=== PATIENT | female | born 1980 | race Caucasian/White ===

== ENCOUNTER 2018-01-15 12:24 | Emergency (ER) | payer OTHER ==
[~2018-01-15] VITALS: Ht 175.2 cm; Wt 113.4 kg
[~2018-01-15 12:24] MED LIST: ACULAR 3 ML3 M1 OP; ANTIBIOTIC; BACTRIM DS 8001 TA1 PO; CIPRO250 MG PO; CLEOCIN150 MG PO; CLINDAMYCIN HC300 MG PO; DOXYCYCLINE100 M2 PO; FLONASE 0.05% 121 EA NAS; HYCODAN,HYDROME10 ML PO; HYDROCODONE BIT1 T11 PO; LEVOFLOXACIN500 MG PO; MEDROL DOSEPAK4 MG PO; MELOXICAM15 MG PO; NAPROSYN500 MG PO; NKHM; PERCOCET 650 MG1 TA1 PO; PRILOSEC20 MG PO; PROAIR HFA0.09 MG/AC INH; ROBITUSSIN AC 10 MG/ PO; TOBRAMYCIN 0.3% OP; TYLENOL W/CODEI1 TA2 PO; VENTOLIN H0.09 MG/AC INH
[2018-01-15 13:00] LABS: BASO % 0.4 % (0.0-1.0); EOS # 0.1 10*3/uL (0.0-0.4); HEMATOCRIT 44.6 % (37.0-47.0); HEMOGLOBIN 14.8 g/dl (12.0-16.0); LYMPH # 1.2 10*3/uL (1.3-4.4); LYMPH % 22.2 % (27.0-41.0); MEAN CORPUSCULAR HGB 30.2 pg (27.0-31.0); MEAN CORPUSCULAR HGB CONC 33.2 g/dl (33.0-37.0); MEAN PLATELET VOLUME 9.8 fl (9.6-12.3); MONO # 0.7 10*3/uL (0.1-1.0); MONO % 14.3 % (3.0-9.0); NEUT # 3.2 10*3/uL (2.3-7.9); NEUT % 61.9 % (47.0-73.0); PLATELET COUNT AUTOMATED 246 10*3/uL (130-400); RED CELL DISTRI WIDTH 13.6 % (0-14.5); WHITE BLOOD COUNT 5.2 10*3/uL (4.8-10.8)
[2018-01-15 13:15] LABS: ALBUMIN 3.4 gm/dl (3.1-4.5); ALKALINE PHOSPHATASE 79 U/L (45-117); BUN 7 mg/dl (7-24); CHLORIDE 104 mmol/L (98-107); CREATININE 0.83 mg/dL (0.55-1.02); POTASSIUM 3.8 mmol/L (3.5-5.1); SGOT/AST 16 IU/L (3-35); SGPT/ALT 21 U/L (12-78); SODIUM 137 mmol/L (136-145); TOTAL PROTEIN 7.4 gm/dL (6.4-8.2)
[2018-01-15] MEDS ORDERED: TAMIFLU 75MG CA75 MG PO ×2 (15:22→15:25)
[2018-01-15] MEDS ORDERED: SEPTDS PO (15:22)
== END 2018-01-15 14:54 | disposition home or self-care (01) ==
LOC: ED 12:24
PROVIDERS: Emergency Medicine
DX: J32.9 Chronic sinusitis, unspecified (principal); J10.1 Influenza due to other identified influenza virus with other respiratory manifestations; Z79.899 Other long term (current) drug therapy; Z88.0 Allergy status to penicillin; Z88.1 Allergy status to other antibiotic agents; Z88.8 Allergy status to other drugs, medicaments and biological substances; Z91.018 Allergy to other foods

== ENCOUNTER 2018-02-23 10:31 | Emergency (ER) | payer OTHER ==
[~2018-02-23] VITALS: Ht 175.2 cm; Wt 113.4 kg
[~2018-02-23 10:31] MED LIST changes: +SEPTDS PO; +TAMIFLU 75MG CA75 MG PO
== END 2018-02-23 11:52 | disposition home or self-care (01) ==
LOC: ED 10:31
DX: S80.01XA Contusion of right knee, initial encounter (principal); Z88.0 Allergy status to penicillin; Z88.1 Allergy status to other antibiotic agents; Z88.6 Allergy status to analgesic agent; Z88.8 Allergy status to other drugs, medicaments and biological substances; Z91.018 Allergy to other foods; W19.XXXA Unspecified fall, initial encounter; Y93.89 Activity, other specified; Y92.69 Other specified industrial and construction area as the place of occurrence of the external cause; Y99.9 Unspecified external cause status

== ENCOUNTER → 2018-03-23 | Outpatient (CLI) | payer OTHER ==
[~2018-03-23] MED LIST changes: +PREDNISONE10 MG PO; +SOMA350 MG PO
[2018-03-23 16:08] LABS: BASO % 0.3 % (0.0-1.0); EOS # 0.3 10*3/uL (0.0-0.4); EOS % 2.6 % (1.0-4.0); HEMOGLOBIN 13.9 g/dl (12.0-16.0); LYMPH # 3.6 10*3/uL (1.3-4.4); LYMPH % 35.9 % (27.0-41.0); MEAN CELL VOLUME 93.7 fl (81.0-99.0); MEAN CORPUSCULAR HGB 30.3 pg (27.0-31.0); MEAN CORPUSCULAR HGB CONC 32.3 g/dl (33.0-37.0); MEAN PLATELET VOLUME 9.4 fl (9.6-12.3); MONO # 0.6 10*3/uL (0.1-1.0); MONO % 6.3 % (3.0-9.0); NEUT # 5.5 10*3/uL (2.3-7.9); NEUT % 54.7 % (47.0-73.0); PLATELET COUNT AUTOMATED 311 10*3/uL (130-400); RED BLOOD COUNT 4.59 10*6/uL (4.10-5.10); RED CELL DISTRI WIDTH 13.4 % (0-14.5)
[2018-03-24 09:05] LABS: HEPATITIS B SURFACE AG Negative (Negative); HEPATITIS C VIRUS ANTIBODY <0.1 s/co (0.0-0.9)
[2018-03-25 18:07] LABS: ALTERNARIA ALTERNATA, IGE <0.10 kU/L (Class 0); AMERICAN ELM, IGE <0.10 kU/L (Class 0); ASPERGILLUS FUMIGATU, IGE <0.10 kU/L (Class 0); BERMUDA GRASS, IGE <0.10 kU/L (Class 0); BIRCH, COMMON SILVER IGE <0.10 kU/L (Class 0); CLADOSPORIUM HERBARU, IGE <0.10 kU/L (Class 0); CORN, IGE <0.10 kU/L (Class 0); D FARINAE MITE <0.10 kU/L (Class 0); D PTERONYSSINUS <0.10 kU/L (Class 0); DOG DANDER, IGE <0.10 kU/L (Class 0); IMMUNOGLOBULIN IgE 002170 122 IU/mL (0-100); MAPLE LEAF SYCAMORE, IGE <0.10 kU/L (Class 0); MAPLE/BOX ELDER, IGE <0.10 kU/L (Class 0); MILK (COW), IGE 0.11 kU/L (Class 0/I); MOUSE URINE IGE <0.10 kU/L (Class 0); PEANUT, IGE <0.10 kU/L (Class 0); PENICILLIUM CHRYSOGENUM, IGE <0.10 kU/L (Class 0); ROUGH PIGWEED, IGE <0.10 kU/L (Class 0); SHEEP SORREL (DOCK), IGE <0.10 kU/L (Class 0); SHORT RAGWEED, IGE <0.10 kU/L (Class 0); SOYBEAN, IGE <0.10 kU/L (Class 0); TIMOTHY, IGE <0.10 kU/L (Class 0); WALNUT TREE, IGE <0.10 kU/L (Class 0); WHEAT, IGE <0.10 kU/L (Class 0); WHITE ASH, IGE <0.10 kU/L (Class 0); WHITE MULBERRY, IGE <0.10 kU/L (Class 0); WHITE OAK, IGE <0.10 kU/L (Class 0)
== END | disposition home or self-care (01) ==
LOC: LAB 15:39
PROVIDERS: Internal Medicine
DX: L50.9 Urticaria, unspecified (principal)

== ENCOUNTER 2018-04-02 18:49 | Emergency (ER) | payer OTHER ==
[~2018-04-02] VITALS: Ht 175.2 cm; Wt 108.9 kg
[~2018-04-02 18:49] MED LIST changes: -PREDNISONE10 MG PO; -SOMA350 MG PO
[2018-04-02] MEDS ORDERED: SOMA350 MG PO (21:50)
[2018-04-02] MEDS ORDERED: PREDNISONE10 MG PO (22:10)
== END 2018-04-02 21:56 | disposition home or self-care (01) ==
LOC: ED 18:49
DX: S16.1XXA Strain of muscle, fascia and tendon at neck level, initial encounter (principal); S39.012A Strain of muscle, fascia and tendon of lower back, initial encounter; S30.1XXA Contusion of abdominal wall, initial encounter; Z88.0 Allergy status to penicillin; Z88.1 Allergy status to other antibiotic agents; Z88.8 Allergy status to other drugs, medicaments and biological substances; V49.88XA Car occupant (driver) (passenger) injured in other specified transport accidents, initial encounter; Y93.89 Activity, other specified; Y92.413 State road as the place of occurrence of the external cause; Y99.9 Unspecified external cause status

== ENCOUNTER → 2018-06-23 | Outpatient (CLI) | payer OTHER ==
[~2018-06-23] MED LIST changes: +PREDNISONE10 MG PO; +SOMA350 MG PO
[2018-06-23 13:00] LABS: BILIRUBIN NEGATIVE (NEGATIVE); BLOOD 2+ (NEGATIVE); CLARITY SL CLOUDY (CLEAR); COLOR YELLOW (YELLOW); GLUCOSE NEGATIVE (NEGATIVE); KETONE NEGATIVE (NEGATIVE); LEUKO ESTERASE NEGATIVE (NEGATIVE); NITRITE NEGATIVE (NEGATIVE); PH 5.5 (5.0-9.0); UROBILINOGEN 0.2 E.U./dl (0.2-1.0)
[2018-06-23 13:01] LABS: BASO % 0.4 % (0.0-1.0); EOS # 0.2 10*3/uL (0.0-0.4); EOS % 1.4 % (1.0-4.0); HEMATOCRIT 43.1 % (37.0-47.0); HEMOGLOBIN 14.4 g/dl (12.0-16.0); LYMPH # 3.4 10*3/uL (1.3-4.4); LYMPH % 31.7 % (27.0-41.0); MEAN CELL VOLUME 90.7 fl (81.0-99.0); MEAN CORPUSCULAR HGB 30.3 pg (27.0-31.0); MEAN CORPUSCULAR HGB CONC 33.4 g/dl (33.0-37.0); MEAN PLATELET VOLUME 9.5 fl (9.6-12.3); MONO # 0.7 10*3/uL (0.1-1.0); MONO % 6.2 % (3.0-9.0); NEUT # 6.4 10*3/uL (2.3-7.9); NEUT % 59.9 % (47.0-73.0); PLATELET COUNT AUTOMATED 338 10*3/uL (130-400); RED BLOOD COUNT 4.75 10*6/uL (4.10-5.10); WHITE BLOOD COUNT 10.6 10*3/uL (4.8-10.8)
[2018-06-23 13:14] LABS: BACTERIA 2+; EPITHELIAL CELLS 15-20; MUCOUS 1+
[2018-06-23 13:28] LABS: ALBUMIN 3.5 gm/dl (3.1-4.5); ALKALINE PHOSPHATASE 94 U/L (45-117); BUN 11 mg/dl (7-24); CHLORIDE 108 mmol/L (98-107); CREATININE 0.74 mg/dL (0.55-1.02); POTASSIUM 3.9 mmol/L (3.5-5.1); SGOT/AST 7 IU/L (3-35); SGPT/ALT 16 U/L (12-78); SODIUM 141 mmol/L (136-145); T3 UPTAKE 35 % (31-39); THYROXINE (T4) TOTAL 10.9 ug/dl (4.8-13.9); TOTAL PROTEIN 7.8 gm/dL (6.4-8.2)
== END | disposition home or self-care (01) ==
LOC: LAB 12:20
PROVIDERS: Urology
DX: N20.0 Calculus of kidney (principal); N39.0 Urinary tract infection, site not specified

== ENCOUNTER → 2019-06-03 | Day surgery (SDC) | payer OTHER | END | disposition home or self-care (01) | LOC: SDC 01:42 | DX: N60.92 Unspecified benign mammary dysplasia of left breast (principal); N63.20 Unspecified lump in the left breast, unspecified quadrant ==

== ENCOUNTER 2019-07-01 21:49 | Emergency (ER) | payer OTHER ==
[~2019-07-01] VITALS: Ht 175.2 cm; Wt 108.9 kg
[2019-07-02] MEDS ORDERED: MEDROL DOSEPAK4 MG PO (00:13)
== END 2019-07-02 00:30 | disposition home or self-care (01) ==
LOC: ED 21:49
DX: S39.012A Strain of muscle, fascia and tendon of lower back, initial encounter (principal); M54.41 Lumbago with sciatica, right side; F17.200 Nicotine dependence, unspecified, uncomplicated; Z88.0 Allergy status to penicillin; Z88.1 Allergy status to other antibiotic agents; Z88.8 Allergy status to other drugs, medicaments and biological substances; Z88.6 Allergy status to analgesic agent; Z91.018 Allergy to other foods; Z87.442 Personal history of urinary calculi; X50.1XXA Overexertion from prolonged static or awkward postures, initial encounter; Y93.89 Activity, other specified; Y92.098 Other place in other non-institutional residence as the place of occurrence of the external cause; Y99.8 Other external cause status

== ENCOUNTER 2019-10-11 13:41 | Emergency (ER) | payer OTHER ==
[~2019-10-11] VITALS: Wt 100.2 kg
[2019-10-11] MEDS ORDERED: IBU600 M1 PO (15:24)
== END 2019-10-11 15:32 | disposition home or self-care (01) ==
LOC: ED 13:41
DX: N64.4 Mastodynia (principal); N63.11 Unspecified lump in the right breast, upper outer quadrant; F17.200 Nicotine dependence, unspecified, uncomplicated; Z88.0 Allergy status to penicillin; Z88.1 Allergy status to other antibiotic agents; Z88.8 Allergy status to other drugs, medicaments and biological substances; Z88.6 Allergy status to analgesic agent; Z91.018 Allergy to other foods

== ENCOUNTER 2019-11-09 16:09 | Emergency (ER) | payer OTHER ==
[~2019-11-09] VITALS: Ht 175.2 cm; Wt 99.8 kg
[~2019-11-09 16:09] MED LIST changes: +IBU600 M1 PO
== END 2019-11-09 18:49 | disposition home or self-care (01) ==
LOC: ED 16:09
DX: S06.0X0A Concussion without loss of consciousness, initial encounter (principal); Z88.1 Allergy status to other antibiotic agents; Z88.8 Allergy status to other drugs, medicaments and biological substances; Z88.0 Allergy status to penicillin; Z91.018 Allergy to other foods; Z79.899 Other long term (current) drug therapy; W22.8XXA Striking against or struck by other objects, initial encounter; Y93.89 Activity, other specified; Y92.098 Other place in other non-institutional residence as the place of occurrence of the external cause; Y99.8 Other external cause status

== ENCOUNTER 2019-12-10 15:30 | Emergency (ER) | payer OTHER ==
[~2019-12-10] VITALS: Ht 175.2 cm; Wt 103.4 kg
[~2019-12-10 15:30] MED LIST changes: -NEXIUM40 MG PO
[2019-12-10 17:23] LABS: BASO % 0.4 % (0.0-1.0); EOS # 0.3 10*3/uL (0.0-0.4); EOS % 3.8 % (1.0-4.0); HEMATOCRIT 44.2 % (37.0-47.0); HEMOGLOBIN 14.5 g/dl (12.0-16.0); MEAN CORPUSCULAR HGB 30.9 pg (27.0-31.0); MEAN CORPUSCULAR HGB CONC 32.8 g/dl (33.0-37.0); MEAN PLATELET VOLUME 9.5 fl (9.6-12.3); MONO # 0.7 10*3/uL (0.1-1.0); NEUT # 4.1 10*3/uL (2.3-7.9); NEUT % 50.6 % (47.0-73.0); PLATELET COUNT AUTOMATED 328 10*3/uL (130-400); RED CELL DISTRI WIDTH 12.9 % (0-14.5); WHITE BLOOD COUNT 8.2 10*3/uL (4.8-10.8)
[2019-12-10 17:37] LABS: ACT PARTIAL THROMBO TIME 28.1 SECONDS (20.0-32.1); ALBUMIN 3.4 gm/dl (3.1-4.5); ALKALINE PHOSPHATASE 87 U/L (45-117); BUN 7 mg/dl (7-24); CHLORIDE 106 mmol/L (98-107); CREATININE 1.03 mg/dL (0.55-1.02); LIPASE 38 U/L (73-393); POTASSIUM 3.4 mmol/L (3.5-5.1); SGOT/AST 9 IU/L (3-35); SGPT/ALT 16 U/L (12-78); SODIUM 139 mmol/L (136-145); TOTAL PROTEIN 7.3 gm/dL (6.4-8.2); TROPONIN I < 0.015 ng/ml (<0.045)
[2019-12-10] MEDS ORDERED: NEXIUM40 MG PO (19:33)
[2019-12-10] MEDS ORDERED: SEPTDS PO (19:53)
== END 2019-12-10 20:09 | disposition home or self-care (01) ==
LOC: ED 15:30
PROVIDERS: Physician Assistant
DX: R10.13 Epigastric pain (principal); L02.413 Cutaneous abscess of right upper limb; R11.0 Nausea; I10 Essential (primary) hypertension; F17.200 Nicotine dependence, unspecified, uncomplicated; Z88.0 Allergy status to penicillin; Z88.1 Allergy status to other antibiotic agents; Z88.8 Allergy status to other drugs, medicaments and biological substances; Z88.6 Allergy status to analgesic agent; Z91.018 Allergy to other foods; Z79.899 Other long term (current) drug therapy

== ENCOUNTER → 2019-12-10 | Outpatient (CLI) | payer OTHER ==
[~2019-12-10] MED LIST changes: +NEXIUM40 MG PO
== END | disposition home or self-care (01) ==
LOC: MRI 14:00
DX: J01.00 Acute maxillary sinusitis, unspecified (principal)

== ENCOUNTER → 2020-03-09 | Outpatient (CLI) | payer OTHER ==
[~2020-03-09] MED LIST changes: +NEXIUM40 MG PO
== END | disposition home or self-care (01) ==
LOC: LAB 10:17
DX: S92.912A Unspecified fracture of left toe(s), initial encounter for closed fracture (principal); M47.817 Spondylosis without myelopathy or radiculopathy, lumbosacral region; M85.88 Other specified disorders of bone density and structure, other site; R60.0 Localized edema; X58.XXXA Exposure to other specified factors, initial encounter; Y93.89 Activity, other specified; Y92.89 Other specified places as the place of occurrence of the external cause; Y99.8 Other external cause status

== ENCOUNTER → 2020-03-20 | Outpatient (CLI) | payer OTHER | END | disposition home or self-care (01) | LOC: MAMMO 12:55 | DX: N63.23 Unspecified lump in the left breast, lower outer quadrant (principal); N60.02 Solitary cyst of left breast ==

== ENCOUNTER 2020-07-31 19:48 | Emergency (ER) | payer OTHER ==
[~2020-07-31] VITALS: Ht 175.2 cm; Wt 103.4 kg
== END 2020-07-31 20:04 | disposition home or self-care (01) ==
LOC: ED 19:48
DX: S89.91XA Unspecified injury of right lower leg, initial encounter (principal); F17.200 Nicotine dependence, unspecified, uncomplicated; Z88.0 Allergy status to penicillin; Z88.1 Allergy status to other antibiotic agents; Z91.018 Allergy to other foods; Z88.8 Allergy status to other drugs, medicaments and biological substances; W22.8XXA Striking against or struck by other objects, initial encounter; Y93.89 Activity, other specified; Y92.89 Other specified places as the place of occurrence of the external cause; Y99.8 Other external cause status

== ENCOUNTER → 2020-11-02 | Outpatient (CLI) | payer OTHER | END | disposition home or self-care (01) | LOC: MAMMO 00:56 | PROVIDERS: ATTEND Internal Medicine Nephrology | DX: N63.25 Unspecified lump in the left breast, overlapping quadrants (principal); N63.23 Unspecified lump in the left breast, lower outer quadrant; N64.89 Other specified disorders of breast ==

== ENCOUNTER 2021-03-28 03:53 | Emergency (ER) | payer OTHER ==
[~2021-03-28] VITALS: Ht 175.2 cm; Wt 94.3 kg
[2021-03-28] MEDS ORDERED: VIBRAMYCIN100 MG PO (04:05)
== END 2021-03-28 04:15 | disposition home or self-care (01) ==
LOC: ED 03:53
DX: H66.92 Otitis media, unspecified, left ear (principal); Z88.0 Allergy status to penicillin; Z88.8 Allergy status to other drugs, medicaments and biological substances; Z79.899 Other long term (current) drug therapy

== ENCOUNTER 2021-05-01 12:22 | Emergency (ER) | payer OTHER ==
[~2021-05-01] VITALS: Ht 175.2 cm; Wt 107.5 kg
[~2021-05-01 12:22] MED LIST changes: +VIBRAMYCIN100 MG PO
== END 2021-05-01 15:33 | disposition home or self-care (01) ==
LOC: ED 12:22
DX: R59.0 Localized enlarged lymph nodes (principal); R51.9 Headache, unspecified; H53.149 Visual discomfort, unspecified; Z88.0 Allergy status to penicillin; Z88.1 Allergy status to other antibiotic agents; Z88.8 Allergy status to other drugs, medicaments and biological substances; Z88.6 Allergy status to analgesic agent; Z91.018 Allergy to other foods; Z79.899 Other long term (current) drug therapy; Z79.2 Long term (current) use of antibiotics

== ENCOUNTER → 2021-05-09 | Outpatient (CLI) | payer OTHER ==
[~2021-05-09] MED LIST changes: +CLARITIN-D 121 EACH PO; +FLONASE ALLERG9.9 ML NAS; +TOPAMAX25 M3 PO
== END | disposition home or self-care (01) ==
LOC: CT 00:09
PROVIDERS: ATTEND Internal Medicine
DX: R59.0 Localized enlarged lymph nodes (principal); J32.0 Chronic maxillary sinusitis

== ENCOUNTER 2021-05-22 14:10 | Inpatient (IN) | payer OTHER ==
[~2021-05-22] VITALS: Ht 175.2 cm; Wt 107.8 kg
[~2021-05-22 14:10] MED LIST changes: -CLARITIN-D 121 EACH PO; -FLONASE ALLERG9.9 ML NAS; -TOPAMAX25 M3 PO
[2021-05-22 14:20] VITALS: BP 155/83
[2021-05-22 15:29] LABS: BASO % 0.2 % (0.0-1.0); EOS # 0.4 10*3/uL (0.0-0.4); EOS % 4.7 % (1.0-4.0); HEMATOCRIT 40.6 % (37.0-47.0); LYMPH # 2.3 10*3/uL (1.3-4.4); LYMPH % 27.9 % (27.0-41.0); MEAN CELL VOLUME 92.7 fl (81.0-99.0); MEAN CORPUSCULAR HGB 29.2 pg (27.0-31.0); MEAN CORPUSCULAR HGB CONC 31.5 g/dl (33.0-37.0); MONO # 0.5 10*3/uL (0.1-1.0); MONO % 6.7 % (3.0-9.0); NEUT # 4.9 10*3/uL (2.3-7.9); NEUT % 60.3 % (47.0-73.0); PLATELET COUNT AUTOMATED 372 10*3/uL (130-400); RED BLOOD COUNT 4.38 10*6/uL (4.10-5.10); RED CELL DISTRI WIDTH 12.8 % (0-14.5); WHITE BLOOD COUNT 8.1 10*3/uL (4.8-10.8)
[2021-05-22 16:08] LABS: ALKALINE PHOSPHATASE 74 U/L (45-117); BUN 6 mg/dl (7-24); CHLORIDE 105 mmol/L (98-107); CREATININE 0.71 mg/dL (0.55-1.02); POTASSIUM 3.7 mmol/L (3.5-5.1); SGOT/AST 8 IU/L (3-35); SODIUM 138 mmol/L (136-145); TOTAL PROTEIN 7.5 gm/dL (6.4-8.2)
[2021-05-22 16:18] LABS: SGPT/ALT 14 U/L (12-78)
[2021-05-22 16:24] LABS: BETA-HCG, QUANT < 1.0 mIU/mL (1-3)
[2021-05-22] MEDS ORDERED: FLONASE ALLERG9.9 ML NAS (18:24)
[2021-05-22] MEDS ORDERED: TOPAMAX25 M3 PO (18:27)
[2021-05-22] MEDS ORDERED: CLARITIN-D 121 EACH PO (18:28)
[2021-05-22 18:33] VITALS: BP 151/79
[2021-05-22 20:00] VITALS: BP 138/58
[2021-05-23] VITALS (8 sets, daily range): BP systolic 131–155; BP diastolic 65–92
[2021-05-23 07:06] LABS: CYTOMEGALOVIRUS AB, IGG >10.00 U/mL (0.00-0.59)
[2021-05-24] VITALS: BP 151/79
[2021-05-24 08:00] VITALS: BP 145/69
[2021-05-24 12:00] VITALS: BP 153/84
[2021-05-24 16:00] VITALS: BP 126/102
== END 2021-05-24 17:58 | disposition home or self-care (01) | DRG 651 ==
LOC: ED 14:10 → EDHOLD 15:20 → 5E 15:20
PROVIDERS: Emergency Medicine; Podiatrist Foot & Ankle Surgery; ADMIT Internal Medicine; ATTEND Internal Medicine
PROC: 07B20ZX Excision of Left Neck Lymphatic, Open Approach, Diagnostic (ICD-10-PCS; principal; 2021-05-23)
PROC: BD1BYZZ Fluoroscopy of Mouth/Oropharynx using Other Contrast (ICD-10-PCS; 2021-05-24)
DX: R59.0 Localized enlarged lymph nodes (principal); R13.10 Dysphagia, unspecified; R10.9 Unspecified abdominal pain; R49.0 Dysphonia; R61 Generalized hyperhidrosis; R73.9 Hyperglycemia, unspecified; E83.41 Hypermagnesemia; F41.9 Anxiety disorder, unspecified; I10 Essential (primary) hypertension; E88.09 Other disorders of plasma-protein metabolism, not elsewhere classified; K76.0 Fatty (change of) liver, not elsewhere classified; D72.10 Eosinophilia, unspecified; F17.210 Nicotine dependence, cigarettes, uncomplicated; Z88.0 Allergy status to penicillin; Z88.1 Allergy status to other antibiotic agents; Z88.8 Allergy status to other drugs, medicaments and biological substances; Z91.018 Allergy to other foods; Z82.5 Family history of asthma and other chronic lower respiratory diseases; Z79.899 Other long term (current) drug therapy; Z82.49 Family history of ischemic heart disease and other diseases of the circulatory system; Z82.3 Family history of stroke; Z80.3 Family history of malignant neoplasm of breast; Z80.8 Family history of malignant neoplasm of other organs or systems

== ENCOUNTER 2021-07-08 10:16 | Emergency (ER) | payer OTHER ==
[~2021-07-08] VITALS: Ht 172.7 cm; Wt 101.6 kg
[~2021-07-08 10:16] MED LIST changes: +CLARITIN-D 121 EACH PO; +FLONASE ALLERG9.9 ML NAS; +TOPAMAX25 M3 PO
== END 2021-07-08 13:44 | disposition left against medical advice (07) ==
LOC: ED 10:16
DX: R21 Rash and other nonspecific skin eruption (principal); Z53.21 Procedure and treatment not carried out due to patient leaving prior to being seen by health care provider

== ENCOUNTER 2021-07-29 08:23 | Emergency (ER) | payer OTHER | END 2021-07-29 09:59 | disposition left against medical advice (07) | LOC: ED 08:23 | DX: R05.9 Cough, unspecified (principal); Z53.21 Procedure and treatment not carried out due to patient leaving prior to being seen by health care provider ==

== ENCOUNTER → 2021-07-31 | Outpatient (CLI) | payer OTHER | END | disposition home or self-care (01) | LOC: COVID19 16:28 | PROVIDERS: ATTEND Student in an Organized Health Care Education/Training Program | DX: U07.1 COVID-19 (principal) ==

== ENCOUNTER → 2021-09-18 | Outpatient (CLI) | payer OTHER | END | disposition home or self-care (01) | LOC: US 09-10 13:00 | PROVIDERS: ATTEND Internal Medicine Nephrology | DX: N64.59 Other signs and symptoms in breast (principal) ==

== ENCOUNTER 2021-10-06 01:03 | Emergency (ER) | payer OTHER ==
[2021-10-06] MEDS ORDERED: LORAZEPAM0.5 MG PO (01:22)
== END 2021-10-06 02:10 | disposition home or self-care (01) ==
LOC: ED 01:03
DX: M79.605 Pain in left leg (principal); Z88.0 Allergy status to penicillin; Z88.1 Allergy status to other antibiotic agents; Z88.8 Allergy status to other drugs, medicaments and biological substances; Z91.018 Allergy to other foods; Z79.899 Other long term (current) drug therapy

== ENCOUNTER 2022-01-28 05:00 | Emergency (ER) | payer OTHER ==
[~2022-01-28] VITALS: Ht 175.2 cm; Wt 96.2 kg
[~2022-01-28 05:00] MED LIST changes: +LORAZEPAM0.5 MG PO
[2022-01-28] MEDS ORDERED: OMEPRAZOLE40 MG PO (05:31)
== END 2022-01-28 07:00 | disposition home or self-care (01) ==
LOC: ED 05:00
DX: M25.531 Pain in right wrist (principal); Z88.0 Allergy status to penicillin; Z88.1 Allergy status to other antibiotic agents; Z88.6 Allergy status to analgesic agent; Z91.018 Allergy to other foods; Z79.899 Other long term (current) drug therapy; F17.200 Nicotine dependence, unspecified, uncomplicated; W18.39XA Other fall on same level, initial encounter; Y93.89 Activity, other specified; Y92.89 Other specified places as the place of occurrence of the external cause; Y99.8 Other external cause status

== ENCOUNTER 2022-06-10 02:00 | Emergency (ER) | payer OTHER ==
[~2022-06-10] VITALS: Ht 175.2 cm; Wt 99.8 kg
[~2022-06-10 02:00] MED LIST changes: +OMEPRAZOLE40 MG PO
[2022-06-10 02:51] LABS: BASO % 0.6 % (0.0-1.0); EOS # 0.1 10*3/uL (0.0-0.4); EOS % 1.9 % (1.0-4.0); LYMPH # 0.7 10*3/uL (1.3-4.4); LYMPH % 14.2 % (27.0-41.0); MEAN CELL VOLUME 90.1 fl (81.0-99.0); MEAN CORPUSCULAR HGB 29.7 pg (27.0-31.0); MEAN CORPUSCULAR HGB CONC 32.9 g/dl (33.0-37.0); MEAN PLATELET VOLUME 9.1 fl (9.6-12.3); MONO # 0.9 10*3/uL (0.1-1.0); NEUT # 3.4 10*3/uL (2.3-7.9); NEUT % 66.1 % (47.0-73.0); PLATELET COUNT AUTOMATED 286 10*3/uL (130-400); RED BLOOD COUNT 4.55 10*6/uL (4.10-5.10); RED CELL DISTRI WIDTH 13.5 % (0-14.5); WHITE BLOOD COUNT 5.1 10*3/uL (4.8-10.8)
[2022-06-10 03:06] LABS: ALKALINE PHOSPHATASE 72 U/L (45-117); BUN 7 mg/dl (7-24); CHLORIDE 108 mmol/L (98-107); CREATININE 0.88 mg/dL (0.55-1.02); POTASSIUM 3.6 mmol/L (3.5-5.1); SGOT/AST 9 IU/L (3-35); SGPT/ALT 15 U/L (12-78); SODIUM 141 mmol/L (136-145)
== END 2022-06-10 07:13 | disposition home or self-care (01) ==
LOC: ED 02:00
PROVIDERS: Emergency Medicine
DX: U07.1 COVID-19 (principal); B34.9 Viral infection, unspecified; G43.909 Migraine, unspecified, not intractable, without status migrainosus; F17.200 Nicotine dependence, unspecified, uncomplicated; Z88.0 Allergy status to penicillin; Z88.1 Allergy status to other antibiotic agents; Z88.8 Allergy status to other drugs, medicaments and biological substances; Z91.018 Allergy to other foods; Z79.899 Other long term (current) drug therapy; Z90.89 Acquired absence of other organs

== ENCOUNTER 2022-07-11 02:13 | Emergency (ER) | payer OTHER | END 2022-07-11 03:37 | disposition home or self-care (01) | LOC: ED 02:13 | DX: T78.49XA Other allergy, initial encounter (principal); E66.9 Obesity, unspecified; F17.200 Nicotine dependence, unspecified, uncomplicated; Z88.0 Allergy status to penicillin; Z88.1 Allergy status to other antibiotic agents; Z88.6 Allergy status to analgesic agent; Z91.018 Allergy to other foods; Z68.30 Body mass index [BMI] 30.0-30.9, adult; X58.XXXA Exposure to other specified factors, initial encounter ==

== ENCOUNTER 2022-08-31 20:13 | Emergency (ER) | payer OTHER ==
[~2022-08-31] VITALS: Wt 90.7 kg
[2022-09-01] MEDS ORDERED: HYDROCODONE-AC1 EAC1 PO ×2 (02:20→02:26)
== END 2022-09-01 02:17 | disposition home or self-care (01) ==
LOC: ED 20:13
DX: S82.891A Other fracture of right lower leg, initial encounter for closed fracture (principal); S96.912A Strain of unspecified muscle and tendon at ankle and foot level, left foot, initial encounter; S82.831A Other fracture of upper and lower end of right fibula, initial encounter for closed fracture; Z88.0 Allergy status to penicillin; Z88.1 Allergy status to other antibiotic agents; Z91.018 Allergy to other foods; Z88.8 Allergy status to other drugs, medicaments and biological substances; Z79.899 Other long term (current) drug therapy; Z90.89 Acquired absence of other organs; F17.200 Nicotine dependence, unspecified, uncomplicated; W18.39XA Other fall on same level, initial encounter; Y93.89 Activity, other specified; Y92.89 Other specified places as the place of occurrence of the external cause; Y99.8 Other external cause status

== ENCOUNTER 2022-09-25 08:30 | Emergency (ER) | payer OTHER ==
[~2022-09-25 08:30] MED LIST changes: +HYDROCODONE-AC1 EAC1 PO
[2022-09-25] MEDS ORDERED: Percocet 325 MG1 TAB PO (09:04)
== END 2022-09-25 09:39 | disposition home or self-care (01) ==
LOC: ED 08:30
DX: S82.891A Other fracture of right lower leg, initial encounter for closed fracture (principal); Z88.0 Allergy status to penicillin; Z91.018 Allergy to other foods; Z88.1 Allergy status to other antibiotic agents; Z88.8 Allergy status to other drugs, medicaments and biological substances; Z79.899 Other long term (current) drug therapy; Z90.89 Acquired absence of other organs; Z87.891 Personal history of nicotine dependence; X58.XXXA Exposure to other specified factors, initial encounter; Y93.89 Activity, other specified; Y92.89 Other specified places as the place of occurrence of the external cause; Y99.8 Other external cause status

== ENCOUNTER → 2022-10-08 | Outpatient (CLI) | payer OTHER ==
[~2022-10-08] MED LIST changes: +Percocet 325 MG1 TAB PO
== END | disposition home or self-care (01) ==
LOC: CT 10-02 14:00
PROVIDERS: ATTEND Orthopaedic Surgery
DX: S93.402D Sprain of unspecified ligament of left ankle, subsequent encounter (principal); M19.072 Primary osteoarthritis, left ankle and foot; M77.32 Calcaneal spur, left foot; M25.475 Effusion, left foot; X58.XXXD Exposure to other specified factors, subsequent encounter

== ENCOUNTER 2023-01-11 09:32 | Emergency (ER) | payer OTHER ==
[~2023-01-11] VITALS: Ht 175.2 cm; Wt 99.8 kg
[2023-01-11 10:34] LABS: BASO % 0.4 % (0.0-1.0); EOS # 0.4 10*3/uL (0.0-0.4); EOS % 3.5 % (1.0-4.0); HEMATOCRIT 41.5 % (37.0-47.0); LYMPH # 3.6 10*3/uL (1.3-4.4); MEAN CORPUSCULAR HGB 29.4 pg (27.0-31.0); MEAN CORPUSCULAR HGB CONC 32.3 g/dl (33.0-37.0); MEAN PLATELET VOLUME 8.7 fl (9.6-12.3); MONO # 0.7 10*3/uL (0.1-1.0); MONO % 7.3 % (3.0-9.0); NEUT # 5.2 10*3/uL (2.3-7.9); NEUT % 52.6 % (47.0-73.0); PLATELET COUNT AUTOMATED 337 10*3/uL (130-400); RED BLOOD COUNT 4.56 10*6/uL (4.10-5.10); RED CELL DISTRI WIDTH 13.6 % (0-14.5); WHITE BLOOD COUNT 9.9 10*3/uL (4.8-10.8)
[2023-01-11 10:49] LABS: ALKALINE PHOSPHATASE 71 U/L (46-116); BUN 10 mg/dl (9-23); CHLORIDE 108 mmol/L (98-107); POTASSIUM 3.6 mmol/L (3.4-5.1); SGPT/ALT 8 U/L (10-49); TOTAL PROTEIN 6.7 gm/dL (6.0-8.0)
[2023-01-11] MEDS ORDERED: DOXYCYCLINE HY100 M3 PO (13:01)
== END 2023-01-11 13:11 | disposition home or self-care (01) ==
LOC: ED 09:32
PROVIDERS: Family Medicine
DX: L03.114 Cellulitis of left upper limb (principal); L02.414 Cutaneous abscess of left upper limb; G43.909 Migraine, unspecified, not intractable, without status migrainosus; Z88.0 Allergy status to penicillin; Z88.1 Allergy status to other antibiotic agents; Z91.018 Allergy to other foods; Z88.8 Allergy status to other drugs, medicaments and biological substances; Z90.89 Acquired absence of other organs; F17.200 Nicotine dependence, unspecified, uncomplicated; Z98.890 Other specified postprocedural states

== ENCOUNTER 2023-03-31 08:33 | Emergency (ER) | payer OTHER ==
[~2023-03-31] VITALS: Ht 175.2 cm; Wt 102.1 kg
[~2023-03-31 08:33] MED LIST changes: +DOXYCYCLINE HY100 M3 PO
[2023-03-31 09:15] LABS: BASO # 0.1 10*3/uL (0.0-0.1); BASO % 0.4 % (0.0-1.0); EOS # 0.2 10*3/uL (0.0-0.4); EOS % 1.4 % (1.0-4.0); HEMATOCRIT 43.2 % (37.0-47.0); LYMPH # 3.4 10*3/uL (1.3-4.4); LYMPH % 24.5 % (27.0-41.0); MEAN CELL VOLUME 92.5 fl (81.0-99.0); MEAN CORPUSCULAR HGB 29.8 pg (27.0-31.0); MEAN CORPUSCULAR HGB CONC 32.2 g/dl (33.0-37.0); MEAN PLATELET VOLUME 8.9 fl (9.6-12.3); MONO # 0.8 10*3/uL (0.1-1.0); MONO % 5.6 % (3.0-9.0); NEUT # 9.5 10*3/uL (2.3-7.9); NEUT % 67.8 % (47.0-73.0); PLATELET COUNT AUTOMATED 364 10*3/uL (130-400); RED BLOOD COUNT 4.67 10*6/uL (4.10-5.10); WHITE BLOOD COUNT 14.1 10*3/uL (4.8-10.8)
[2023-03-31 09:26] LABS: ACT PARTIAL THROMBO TIME 27.1 SECONDS (20.0-32.1)
[2023-03-31 09:32] LABS: ALKALINE PHOSPHATASE 80 U/L (46-116); BUN 6 mg/dl (9-23); CHLORIDE 105 mmol/L (98-107); LIPASE 23 U/L (12-53); POTASSIUM 3.1 mmol/L (3.4-5.1); TOTAL PROTEIN 7.3 gm/dL (6.0-8.0)
[2023-03-31 09:40] LABS: BETA-HCG, QUANT < 3.0 mIU/mL (3-10); SGPT/ALT < 7 U/L (10-49)
[2023-03-31] MEDS ORDERED: LEVOFLOXACIN750 M2 PO (11:34)
[2023-03-31] MEDS ORDERED: Motrin,Rufen800 MG PO (11:34)
[2023-03-31] MEDS ORDERED: FLONASE ALLERG9.9 ML NAS (11:34)
== END 2023-03-31 11:45 | disposition home or self-care (01) ==
LOC: ED 08:33
PROVIDERS: Emergency Medicine
DX: J01.90 Acute sinusitis, unspecified (principal); G43.909 Migraine, unspecified, not intractable, without status migrainosus; Z88.0 Allergy status to penicillin; Z88.1 Allergy status to other antibiotic agents; Z88.8 Allergy status to other drugs, medicaments and biological substances; Z91.018 Allergy to other foods; Z90.89 Acquired absence of other organs; F17.200 Nicotine dependence, unspecified, uncomplicated

== ENCOUNTER 2023-07-10 19:20 | Emergency (ER) | payer OTHER ==
[~2023-07-10] VITALS: Ht 175.2 cm; Wt 102.1 kg
[~2023-07-10 19:20] MED LIST changes: +LEVOFLOXACIN750 M2 PO; +Motrin,Rufen800 MG PO
[2023-07-10] MEDS ORDERED: PREDNISONE20 M1 PO (22:30)
== END 2023-07-10 22:48 | disposition home or self-care (01) ==
LOC: ED 19:20
DX: S83.91XA Sprain of unspecified site of right knee, initial encounter (principal); M25.571 Pain in right ankle and joints of right foot; G43.909 Migraine, unspecified, not intractable, without status migrainosus; Z88.0 Allergy status to penicillin; Z88.1 Allergy status to other antibiotic agents; Z91.018 Allergy to other foods; Z88.8 Allergy status to other drugs, medicaments and biological substances; Z90.89 Acquired absence of other organs; Z98.890 Other specified postprocedural states; F17.200 Nicotine dependence, unspecified, uncomplicated; W10.8XXA Fall (on) (from) other stairs and steps, initial encounter; Y93.89 Activity, other specified; Y92.009 Unspecified place in unspecified non-institutional (private) residence as the place of occurrence of the external cause; Y99.8 Other external cause status